=== PATIENT | male | born 1960 | race American Indian/Alaskan Native ===

== ENCOUNTER 2016-05-23 11:45 | Emergency (ER) | payer SELFPAY ==
[2016-05-23 12:26] VITALS: BP 153/90
--- NOTE | 2016-05-23 13:14 | XRay Report ---
Right knee 2 views: History: Injury/pain. Findings: No definite articular abnormality. Height of medial, lateral and patellofemoral compartment appears unremarkable. There is 4 mm bony density identified within the joint suggestive of intra-articular loose body. Mild arthritic changes are noted in the patellofemoral compartment. Impression: Mild arthritic changes patellofemoral compartment. Loose intra-articular body. Suspicion of minimal joint effusion.
--- NOTE | 2016-05-23 13:58 | Emergency Department Report ---
ED Extremity Problem HPI - General Chief complaint: Extremity Injury, Lower Stated complaint: RIGHT KNEE PAIN Time Seen by Provider: 05/23/16 13:53 Source: patient Mode of arrival: Wheelchair Limitations: No Limitations - History of Present Illness MD Complaint: extremity pain, joint paint -: Gradual, month(s) Location: right, knee -: Yes arthralgia, No fever, No associated dyspnea, No associated chest pain Severity scale (0 -10): 9 - Related Data Previous Rx's Medication Instructions Recorded Last Taken Type Prednisone [predniSONE 10 mg 10 mg PO .TAPER #1 tab.ds.pk 05/23/16 Unknown Rx (6-Day Pack, 21 Tabs)] traMADol [Ultram 50 MG tab] 50 mg PO Q4HR PRN #10 tablet 05/23/16 Unknown Rx Allergies Allergy/AdvReac Type Severity Reaction Status Date / Time No Known Allergies Allergy Unverified 05/23/16 12:26 ED Review of Systems ROS: Stated complaint: RIGHT KNEE PAIN Other details as noted in HPI Constitutional: denies: chills, fever Eyes: denies: eye pain, eye discharge, vision change ENT: denies: ear pain, throat pain Respiratory: denies: cough, orthopnea, shortness of breath, SOB with exertion, SOB at rest, stridor, wheezing Cardiovascular: denies: chest pain, palpitations, dyspnea on exertion, syncope Endocrine: no symptoms reported Gastrointestinal: denies: abdominal pain, nausea, diarrhea Genitourinary: denies: urgency, dysuria Musculoskeletal: joint swelling, arthralgia. denies: back pain Skin: denies: rash, lesions Neurological: denies: headache, weakness, paresthesias ED Past Medical Hx - Social History Smoking Status: Never Smoker Substance Use Type: None - Medications Home Medications: Home Medications Medication Instructions Recorded Confirmed Last Taken Type Prednisone [predniSONE 10 mg 10 mg PO .TAPER #1 tab.ds.pk 05/23/16 Unknown Rx (6-Day Pack, 21 Tabs)] traMADol [Ultram 50 MG tab] 50 mg PO Q4HR PRN #10 tablet 05/23/16 Unknown Rx ED Physical Exam - General Limitations: No Limitations General appearance: alert, in no apparent distress - Head Head exam: Present: atraumatic, normocephalic - Eye Eye exam: Present: normal appearance - ENT ENT exam: Present: mucous membranes moist - Neck Neck exam: Present: normal inspection - Respiratory Respiratory exam: Present: normal lung sounds bilaterally. Absent: respiratory distress - Cardiovascular Cardiovascular Exam: Present: regular rate - GI/Abdominal GI/Abdominal exam: Present: soft - Expanded Lower Extremity Exam Right Knee exam: Present: tenderness, swelling, pain/laxity with valgus (medial collateral pain), full knee extension. Absent: ecchymosis, deformity, crepidus , dislocation, erythema, effusion, pain w/ pronation/supination, posterior draw sign, pain/laxity with varus Neuro vascular tendon exam: Present: no vascular compromise. Absent: pulse deficit, abnormal cap refill, sensory deficit Gait: Positive: antalgic - Back Exam Back exam: Present: normal inspection - Neurological Exam Neurological exam: Present: alert, oriented X3 - Psychiatric Psychiatric exam: Present: normal affect, normal mood - Skin Skin exam: Present: warm, dry, intact, normal color. Absent: rash ED Course Vital Signs 05/23/16 12:19 Temperature 98.1 F Pulse Rate 60 Respiratory 18 Rate Blood Pressure 153/90 O2 Sat by Pulse 99 Oximetry Critical care attestation.: If time is entered above; I have spent that time in minutes in the direct care of this critically ill patient, excluding procedure time. ED Disposition Clinical Impression: Internal derangement of knee Disposition: DISCHARGED TO HOME OR SELFCARE Is pt being admited?: No Condition: Stable Instructions: Osteoarthritis (ED) Prescriptions: Prednisone [predniSONE 10 mg (6-Day Pack, 21 Tabs)] 10 mg PO .TAPER #1 tab.ds.pk traMADol [Ultram 50 MG tab] 50 mg PO Q4HR PRN #10 tablet PRN Reason: Pain Referrals: PRIMARY CAREMD [Primary Care Provider] - 3-5 Days STACEY AGUILAR MD [Staff Physician] - 3-5 Days Forms: Work/School Release Form
[2016-05-23] MEDS ORDERED: TORADOL IM ONE (14:55)
[2016-05-23] MEDS ORDERED: NORCO 5/325 PO ONE (14:55)
== END 2016-05-23 15:22 | disposition home or self-care (01) ==
LOC: ED 11:45
DX: M23.91 Unspecified internal derangement of right knee (principal)
CPT/HCPCS: 73562; 96372; 99283; J1885